=== PATIENT | female | born 1990 | race Caucasian/White ===

== ENCOUNTER 2018-07-15 10:51 | Emergency (ER) | payer BC ==
[2018-07-15 11:12] VITALS: BP 115/66
--- NOTE | 2018-07-15 11:25 | UC ---
UC General HPI - HPI Summary HPI Summary: States has had cough and congestion for the past 5-6 days. Low grade temp. Works at [employer] and her boss was concerned about her frequent coughing and recommended she go to urgent care. Thinks overall she is better. Has been taking sudafed and mucinex. No N/V/D. Has childhood asthma but does not have a PCP and has not gotten an inhaler. Meds; reviewed - History of Current Complaint Chief Complaint: UCGeneralIllness Stated Complaint: COLD Time Seen by Provider: 07/15/18 11:08 Hx Last Menstrual Period: 07/13/18 Pain Intensity: 2 - Allergy/Home Medications Allergies/Adverse Reactions: Allergies Allergy/AdvReac Type Severity Reaction Status Date / Time No Known Allergies Allergy Verified 07/15/18 11:11 Home Medications: Home Medications L.acidoph,Paracasei, B.lactis [Probiotic] 1 each PO DAILY WITH MEAL 07/15/18 [ History Confirmed 07/15/18] PMH/Surg Hx/FS Hx/Imm Hx Previously Healthy: Yes - Surgical History Surgical History: None - Social History Alcohol Use: None Substance Use Type: None Smoking Status (MU): Never Smoked Tobacco Review of Systems All Other Systems Reviewed And Are Negative: Yes Constitutional: Positive: Negative ENT: Positive: Sore Throat Respiratory: Positive: Cough Physical Exam Triage Information Reviewed: Yes Appearance: Well-Appearing Vital Signs: Initial Vital Signs Temp 99.2 F 07/15/18 11:07 Pulse 71 07/15/18 11:07 Resp 18 07/15/18 11:07 BP 115/66 07/15/18 11:07 Pulse Ox 100 07/15/18 11:07 Vital Signs Reviewed: Yes Eyes: Positive: Conjunctiva Clear ENT: Positive: Pharyngeal erythema, Nasal congestion, Other - clear fluid b/l Neck: Positive: Supple, Enlarged Nodes @ - anterior cervical chain Respiratory: Positive: Lungs clear, Normal breath sounds Cardiovascular: Positive: RRR, No Murmur Course/Dx - Course Course Of Treatment: This is a 27 yr old with cough and congestion Assessment Nontoxic appearing Dx: viral syndrome Plan Recommend continue supportive care Can try Albuterol inhaler with spacer as needed for cough, as directed Tessalon pearls as needed for cough Nasal spray for congestion Consider restarting an antihistamine such as zyrtec as you were doing - Diagnoses Provider Diagnosis: Viral syndrome Discharge - Sign-Out/Discharge Documenting (check all that apply): Patient Departure All imaging exams completed and their final reports reviewed: No Studies - Discharge Plan Condition: Good Disposition: HOME Prescriptions: Albuterol HFA INHALER* [Ventolin HFA Inhaler*] 2 puff INH Q4H PRN #1 mdi PRN Reason: Cough Benzonatate CAP* [Tessalon 100 MG CAP*] 200 mg PO TID PRN #30 cap PRN Reason: Cough Fluticasone NASAL SPRAY 50MCG* [Flonase NASAL SPRAY 50MCG*] 2 spray BOTH NARES DAILY #1 btl Spacer/Holding Chamber (NF) [Easivent CHAMBER (NF)] 1 applic INH Q4HR PRN #1 device PRN Reason: Cough Patient Education Materials: Viral Syndrome (ED) Forms: *Work Release Referrals: No Primary Care Phys,NOPCP [Primary Care Provider] - Additional Instructions: Recommend continue supportive care Can try Albuterol inhaler with spacer as needed for cough, as directed Tessalon pearls as needed for cough Nasal spray for congestion Consider restarting an antihistamine such as zyrtec as you were doing - Billing Disposition and Condition Condition: GOOD Disposition: Home
== END 2018-07-15 11:28 | disposition home or self-care (01) ==
LOC: UCEAST 10:51
DX: B34.9 Viral infection, unspecified (principal)
CPT/HCPCS: 99212; G0463